=== PATIENT | female | born 1970 | race African-American/Black ===

== ENCOUNTER 2024-02-12 06:03 | Day surgery (SDC) | payer OTHER ==
[2024-01-25 14:39] VITALS: BMI 30.9
[2024-02-12] MEDS ORDERED: MIDAZOLAM HCL 2 MG/2 ML SINGLE DOSE VIAL ONE (07:10)
[2024-02-12] MEDS ORDERED: PROPOFOL 20 ML ONE (07:10)
[2024-02-12] MEDS ORDERED: EPINEPHrine 1:1,000 1,000 MCG/ML ML ONE (07:13)
[2024-02-12] MEDS ORDERED: BUPIVACAINE HCL/PF 0.25% (2.5MG/ML) 10 ML VIAL ONE (07:13)
[2024-02-12] MEDS ORDERED: ACETAMINOPHEN INJECTION 100 ML IVPB ONE (07:21)
[2024-02-12] MEDS ORDERED: ceFAZolin SODIUM 1 GM VIAL ONE ×2 (07:38)
[2024-02-12] MEDS ORDERED: FENTANYL CITRATE/PF 50 MCG/ML VIAL ONE ×2 (08:33→08:54)
[2024-02-12] MEDS ORDERED: oxyCODONE HCL 5 MG TABLET PO PRN (08:35)
[2024-02-12] MEDS ORDERED: LACTATED RINGERS SOLUTION 1,000 ML IV SCH (08:45)
[2024-02-12] MEDS ORDERED: ONDANSETRON 4 MG/2 ML VIAL ONE (08:54)
[2024-02-12] MEDS: ONDANSETRON 4 MG/2 ML VIAL IVPUSH PRN (08:57)
[2024-02-12] MEDS: oxyCODONE HCL 5 MG TABLET ONE (09:31)
[2024-02-12 10:43] VITALS: RESP 16; TEMP 97.2
[2024-02-12 10:45] VITALS: BP 94/63; PULSE 72
[2024-02-12] MEDS ORDERED: ACETAMINOPHEN 325 MG TABLET (FP) PO PRN (14:00)
== END 2024-02-12 10:55 | disposition home or self-care (01) ==
LOC: FASU 06:03
PROVIDERS: ATTEND Orthopaedic Surgery Sports Medicine
PROC: 0SBD4ZZ Excision of Left Knee Joint, Percutaneous Endoscopic Approach (ICD-10-PCS; 2024-02-12)
PROC: 0SBD4ZZ Excision of Left Knee Joint, Percutaneous Endoscopic Approach (ICD-10-PCS; principal; 2024-02-12 07:53)
DX: S83.242A Other tear of medial meniscus, current injury, left knee, initial encounter (principal); S83.282A Other tear of lateral meniscus, current injury, left knee, initial encounter; M94.262 Chondromalacia, left knee; X58.XXXA Exposure to other specified factors, initial encounter; Y93.9 Activity, unspecified; Y92.9 Unspecified place or not applicable
CPT/HCPCS: 94760; J0131

== ENCOUNTER 2024-08-19 07:07 | Day surgery (SDC) | payer OTHER ==
[2024-08-12 12:02] VITALS: BMI 32.5
[2024-08-19] MEDS ORDERED: MIDAZOLAM HCL 2 MG/2 ML SINGLE DOSE VIAL ONE (07:33)
[2024-08-19] MEDS ORDERED: PROPOFOL 20 ML ONE (07:33)
[2024-08-19] MEDS ORDERED: BUPIVACAINE HCL/PF 0.25% (2.5MG/ML) 10 ML VIAL ONE (07:34)
[2024-08-19] MEDS ORDERED: DEXAMETHASONE SOD PHOSPHATE 10 MG/1 ML VIAL ONE (07:59)
[2024-08-19] MEDS ORDERED: DEXMEDETOMIDINE HCL 200 MCG/2 ML IVPB ONE (07:59)
[2024-08-19] MEDS ORDERED: ROPIVACAINE HCL/PF 100 MG/20 ML VIAL ONE (07:59)
[2024-08-19] MEDS ORDERED: ceFAZolin SODIUM 1 GM VIAL ONE (08:34)
[2024-08-19] MEDS ORDERED: ONDANSETRON 4 MG/2 ML VIAL ONE (08:34)
[2024-08-19] MEDS ORDERED: KETOROLAC TROMETHAMINE 30 MG/1 ML VIAL ONE (08:34)
[2024-08-19] MEDS ORDERED: ePHEDrine SULFATE 50 MG/1 ML AMPULE ONE (08:49)
[2024-08-19] MEDS: BUPIVACAINE HCL/PF 0.25% (2.5MG/ML) 10 ML VIAL IJ ONE (08:56)
[2024-08-19] MEDS ORDERED: ONDANSETRON 4 MG/2 ML VIAL IVPUSH PRN (09:12)
[2024-08-19] MEDS ORDERED: LACTATED RINGERS SOLUTION 1,000 ML IV SCH (09:15)
[2024-08-19] MEDS: ACETAMINOPHEN 1000 MG/100 ML BAG IVPB ONE (09:15)
[2024-08-19] MEDS ORDERED: FENTANYL CITRATE/PF 50 MCG/ML VIAL ONE (09:31)
[2024-08-19 09:36] VITALS: RESP 18
[2024-08-19 10:02] VITALS: TEMP 97.4
[2024-08-19] MEDS: oxyCODONE HCL 5 MG TABLET PO PRN (10:05)
[2024-08-19] MEDS ORDERED: oxyCODONE HCL 5 MG TABLET ONE (10:06)
[2024-08-19 10:59] VITALS: BP 115/82; PULSE 88
== END 2024-08-19 10:52 | disposition home or self-care (01) ==
LOC: FASU 07:07
PROVIDERS: ATTEND Orthopaedic Surgery Sports Medicine
PROC: 0SBC4ZZ Excision of Right Knee Joint, Percutaneous Endoscopic Approach (ICD-10-PCS; 2024-08-19)
PROC: 0SBC4ZZ Excision of Right Knee Joint, Percutaneous Endoscopic Approach (ICD-10-PCS; principal; 2024-08-19 08:30)
DX: S83.241A Other tear of medial meniscus, current injury, right knee, initial encounter (principal); S83.281A Other tear of lateral meniscus, current injury, right knee, initial encounter; M94.261 Chondromalacia, right knee; M65.861 Other synovitis and tenosynovitis, right lower leg; X58.XXXA Exposure to other specified factors, initial encounter; Y93.9 Activity, unspecified; Y92.9 Unspecified place or not applicable
CPT/HCPCS: 94760; J0131; J1100

== ENCOUNTER 2025-02-03 06:27 | Day surgery (SDC) | payer OTHER ==
[2025-01-30 12:19] VITALS: BMI 30.9
[2025-02-03] MEDS ORDERED: MIDAZOLAM HCL 2 MG/2 ML SINGLE DOSE VIAL ONE ×2 (07:18→08:54)
[2025-02-03] MEDS ORDERED: BUPIVACAINE HCL/PF 0.5% (5 MG/ML) 30 ML VIAL IJ ONE (07:19)
[2025-02-03] MEDS ORDERED: BUPIVACAINE LIPOSOME/PF (EXPAREL) 266 MG/20 ML VIAL ONE (07:19)
[2025-02-03] MEDS ORDERED: BUPIVACAINE HCL/PF 0.5% (5MG/ML) 10 ML VIAL ONE (08:10)
[2025-02-03] MEDS ORDERED: TRANEXAMIC ACID 1000 MG/10 ML VIAL ONE (09:03)
[2025-02-03] MEDS ORDERED: DEXAMETHASONE SOD PHOSPHATE 4 MG/1 ML VIAL ONE (09:03)
[2025-02-03] MEDS ORDERED: ONDANSETRON 4 MG/2 ML VIAL ONE (09:03)
[2025-02-03] MEDS ORDERED: ceFAZolin SODIUM 1 GM VIAL ONE (09:03)
[2025-02-03] MEDS ORDERED: PHENYLEPHRINE HCL 10 MG/1 ML SINGLE DOSE VIAL ONE (09:03)
[2025-02-03] MEDS ORDERED: BUPIVICAINE 0.25%/MORPH PF/KETOROLAC - 51ML DISP.SYRINGE IA ONE (09:16)
[2025-02-03] MEDS ORDERED: ALBUTEROL SO4 HFA INHALER IH PRN (10:06)
[2025-02-03] MEDS ORDERED: ONDANSETRON 4 MG/2 ML VIAL IVPUSH PRN (10:46)
[2025-02-03] MEDS ORDERED: oxyCODONE HCL 5 MG TABLET PO PRN (10:46)
[2025-02-03] MEDS: KETOROLAC TROMETHAMINE 30 MG/1 ML VIAL IVPUSH SCH (11:01)
[2025-02-03] MEDS: ACETAMINOPHEN 1000 MG/100 ML BAG IVPB ONE (11:01)
[2025-02-03] MEDS: LACTATED RINGERS SOLUTION 1,000 ML IV SCH ×2 (12:13→12:14)
[2025-02-03] MEDS: ONDANSETRON 4 MG/2 ML VIAL IVPUSH PRN (13:16)
[2025-02-03] MEDS: oxyCODONE HCL 5 MG TABLET PO PRN (13:16)
[2025-02-03] MEDS: CEFAZOLIN 2 GM/D5W 2 GRAM/50 ML ML IVPB SCH (17:17)
[2025-02-03] MEDS: ACETAMINOPHEN 500 MG TABLET (FP) PO SCH (17:18)
[2025-02-03] MEDS: ATORVASTATIN CA 20 MG TABLET (FP) PO SCH (21:16)
[2025-02-03] MEDS: SENNOSIDES/DOCUSATE COMBO (SENNA PLUS) TABLET (UD) PO SCH (21:16)
[2025-02-03] MEDS: GABAPENTIN 300 MG CAPSULE PO SCH (21:16)
[2025-02-03] MEDS: oxyCODONE HCL 10 MG SUSTAINED ACTING TABLET PO SCH (21:16)
[2025-02-04 00:03] VITALS: RESP 18
[2025-02-04 08:43] LABS: HEMOGLOBIN 10.3 g/dL (11.2-15.7); MCHC 33.2 g/dl (32.2-35.5); MEAN CELL VOLUME 96.6 fl (79.4-94.8); MEAN PLT VOLUME 9.9 fl (9.4-12.3); PLATELET COUNT 340 x10^3/uL (182-369); RDW 13.2 % (12.3-16.6)
[2025-02-04 09:05] LABS: CALCIUM 9.1 mg/dl (8.5-10.1); CREATININE 0.7 mg/dl (0.6-1.3); POTASSIUM 5.2 mmol/L (3.5-5.1)
[2025-02-04] MEDS: MULTIVITAMINS (DAILY MVI) TABLET (FP) PO SCH (09:10)
[2025-02-04] MEDS: MAG HYDROX/AL HYDROX/SIMETH 30 ML UNIT-DOSE CUP PO PRN (09:10)
[2025-02-04] MEDS: ASPIRIN COATED 81 MG TABLET.EC PO SCH (09:11)
[2025-02-04] MEDS: PANTOPRAZOLE 40 MG TABLET PO SCH (09:11)
[2025-02-04 16:24] VITALS: BP 105/64; PULSE 85; TEMP 98.1
== END 2025-02-04 15:55 | disposition home health service (06) ==
LOC: FASUSAT 06:27 → FM/S 11:52 → FASUSAT 02-04 15:55
PROVIDERS: ATTEND Orthopaedic Surgery Sports Medicine
PROC: 8E0Y0CZ Robotic Assisted Procedure of Lower Extremity, Open Approach (ICD-10-PCS; 2025-02-03)
PROC: 0SRC0JA Replacement of Right Knee Joint with Synthetic Substitute, Uncemented, Open Approach (ICD-10-PCS; principal; 2025-02-03 08:54)
DX: M17.11 Unilateral primary osteoarthritis, right knee (principal)
CPT/HCPCS: 36415; 73560-TC-RT-FY; 80048; 85027; 88305-TC; 88311-TC; 94760; 97010-GP; 97116-GP; 97162-GP; C1776; J0131; J0666